=== PATIENT | male | born 1955 | race Caucasian/White ===

== ENCOUNTER 2016-11-24 14:15 | Emergency (ER) | payer OTHER ==
[~2016-11-24] VITALS: Ht 190.5 cm; Wt 90.7 kg
[2016-11-24 14:17] VITALS: BP_SYST 141
[2016-11-24] MEDS ORDERED: NACL 0.9% 1,000 ML IV ONE ×2 (14:20→14:30)
--- NOTE | 2016-11-24 14:20 | NUR ---
Arrived via [facility] ambulance with compliant of 30 sec aurelia-clonic seizure and fall. Placed in room 3 . Placed on stock mixer, blood pressure machine and pulse oximeter. To gown for exam. Side rails up. Report given to Gloria SHORE.
--- NOTE | 2016-11-24 14:23 | NUR ---
Seizure precautions in place. Seizure pads applied to gurney. Side rails up.
--- NOTE | 2016-11-24 14:24 | NUR ---
Patient brought to ER by ALS from work. Patient had a witnessed seizure. No injury or trauma. patient states that he has history of seizures and is taking medications. AAox4, unlabored breathing, no signs of acute distress.
--- NOTE | 2016-11-24 14:25 | NUR ---
ER MD Navarro at bedside for evaluation
[2016-11-24] MEDS ORDERED: PHEN100C4 PO (14:26)
[2016-11-24] MEDS ORDERED: CARB200T PO (14:26)
--- NOTE | 2016-11-24 14:30 | NUR ---
# 20 gauge angiocath placed to right ac. Use of asceptic technique. Opsite placed over site. Blood return noted. Blood for lab drawn from site. Flushed with 10 cc of normal saline. No evidence of infiltration noted. Patient tolerated well.
[2016-11-24 14:51] LABS: BASOPHILS % (AUTO) 0.7 % (0.0-2.0); EOSINOPHILS # (AUTO) 0.3 K/uL (0.0-0.4); EOSINOPHILS % (AUTO) 6.6 % (0.0-4.0); HEMATOCRIT 38.9 % (36-54); HEMOGLOBIN 13.2 g/dL (14.0-18.0); LYMPHOCYTES # (AUTO) 1.2 K/uL (1.0-5.5); LYMPHOCYTES % (AUTO) 29.7 % (20.5-51.5); MEAN CORPUSCULAR HEMOGLOBIN 31 pg (27-31); MEAN CORPUSCULAR HGB CONC 34 % (32-36); MEAN CORPUSCULAR VOLUME 90 fL (79.0-98.0); MONOCYTES # (AUTO) 0.4 K/uL (0.0-1.0); MONOCYTES % (AUTO) 8.8 % (1.7-9.3); NEUTROPHILS # (AUTO) 2.2 K/uL (1.8-7.7); NEUTROPHILS % (AUTO) 54.2 % (40.0-70.0); PLATELET COUNT (AUTO) 135 K/uL (130-430); RED BLOOD CELL COUNT(AUTO) 4.33 MIL/uL (4.2-6.2); RED CELL DISTRIBUTION WIDTH 13.7 % (9.0-15.0); WHITE BLOOD COUNT (AUTO) 4.1 K/uL (4.8-10.8)
[2016-11-24 14:55] LABS: CALCIUM 8.6 mg/dL (8.4-11.0); CREATININE 1.21 mg/dL (0.55-1.30); POTASSIUM 4.1 mmol/L (3.5-5.1)
[2016-11-24 14:59] LABS: INR 1.7 (0.80-1.20); PROTHROMBIN TIME 18.3 SECS (9.5-12.5)
[2016-11-24 15:00] LABS: ALBUMIN 3.7 g/dL (3.4-4.8); TOTAL BILIRUBIN 0.3 mg/dL (0.0-1.0); TOTAL PROTEIN, SERUM 7.1 g/dL (6.4-8.3)
[2016-11-24 15:13] LABS: BILIRUBIN,URINE NEGATIVE (NEGATIVE); BLOOD, URINE NEGATIVE (NEGATIVE); CLARITY/URINE CLEAR (CLEAR); GLUCOSE,URINE NEGATIVE (NEGATIVE); KETONES,URINE NEGATIVE (NEGATIVE); LEUKOCYTE ESTERASE ,URINE NEGATIVE (NEGATIVE); NITRITE, URINE NEGATIVE (NEGATIVE); PROTEIN URINE NEGATIVE (NEGATIVE); UROBILINOGEN,URINE 0.2 (0.2-1.0)
[2016-11-24 15:16] LABS: COLOR,URINE YELLOW (YELLOW)
--- NOTE | 2016-11-24 15:30 | NUR ---
Dr. Navarro at bedside discussing care with patient.
--- NOTE | 2016-11-24 15:39 | NUR ---
Patient given written and verbal discharge instructions and verbalizes understanding. ER MD discussed with patient the results and treatment provided. Given copies of tests performed in ER. Patient in stable condition. ID arm band removed. IV catheter removed intact and dressing applied, no active bleeding. Discussed seizure follow up with PMD with patient. Opportunity for questions provided and answered.
[2016-11-24 15:42] VITALS: BP_SYST 131
== END 2016-11-24 15:42 | disposition home or self-care (01) ==
LOC: SED 14:15
DX: G40.909 Epilepsy, unspecified, not intractable, without status epilepticus (principal); Z86.79 Personal history of other diseases of the circulatory system; Z88.0 Allergy status to penicillin
CPT/HCPCS: 36415; 80053; 80156; 81003; 82150; 84146; 85025; 85610; 85730; 96360; 96361; 99284; J7030